=== PATIENT | male | born 1995 | race Two or more races ===

== ENCOUNTER 2019-05-24 17:19 | Emergency (ER) | payer OTHER ==
[~2019-05-24] VITALS: Ht 175.3 cm; Wt 116.6 kg
--- NOTE | 2019-05-24 17:32 | NUR ---
TESTICULAR/PENILE AND BILATERAL INGUINAL PAIN X 5 WEEKS. PT IS AMBULATORY, AOX4. PLACED IN GOWN, MADE COMFORTABLE. FAMILY AT BEDSIDE. READY FOR EVAL.
--- NOTE | 2019-05-24 18:11 | NUR ---
[employer] OPERATOR AT BEDSIDE
--- NOTE | 2019-05-24 18:45 | NUR ---
PT TAKEN TO RADIOLOGY VIA
--- NOTE | 2019-05-24 18:54 | NUR ---
URINE SENT TO STAT LAB
[2019-05-24 18:57] LABS: APPEARANCE,URINE Slightly Cloudy (CLEAR); BILIRUBIN,URINE Negative (NEGATIVE); BLOOD, URINE Negative Ery/uL (NEGATIVE); COLOR,URINE Yellow (YELLOW); KETONES,URINE Negative (NEGATIVE); LEUKOCYTE ESTERASE ,URINE Negative (NEGATIVE); NITRITE, URINE Negative (NEGATIVE); PROTEIN,URINE Trace mg/dl (NEGATIVE); UGLUCOSE Negative (NEGATIVE); UROBILINOGEN,URINE 0.2 EU/dL (0.2)
[2019-05-24 19:18] LABS: BACTERIA,URINE Few /HPF (None Seen); SQUAMOUS EPITHELIAL CELL,UR Rare /HPF (None Seen)
[2019-05-24 19:19] LABS: MUCUS,URINE Many /LPF (None Seen); RBC,URINE 0-2 /HPF (0-2); WBC,URINE 0-2 /HPF (0-3)
--- NOTE | 2019-05-24 19:49 | NUR ---
Patient discharged to home in stable condition. Written and verbal after care instructions given. Patient verbalizes understanding of instruction.
[2019-05-24 19:50] VITALS: BP 146/82
== END 2019-05-24 19:50 | disposition home or self-care (01) ==
LOC: ER 17:19
DX: M51.36 Other intervertebral disc degeneration, lumbar region (principal); M51.46 Schmorl's nodes, lumbar region; M54.5 Low back pain; R20.2 Paresthesia of skin; N50.89 Other specified disorders of the male genital organs; F17.200 Nicotine dependence, unspecified, uncomplicated; F10.10 Alcohol abuse, uncomplicated; Y90.9 Presence of alcohol in blood, level not specified
CPT/HCPCS: 72110-TC; 76870-TC; 81000-TC